=== PATIENT | male | born 1955 | race Caucasian/White ===

== ENCOUNTER 2023-03-27 13:58 | Emergency (ER) | payer MEDICARE, OTHER ==
[2023-03-27 15:44] LABS: #Eosinphils 0.1 10x3/uL (0.0-0.5); #Monocytes 0.7 10x3/uL (0.0-1.1); #Neutrophils 7.4 10x3/uL (1.5-8.4); %Basophils 0.4 % (0.0-2.0); %Eosinophils 0.8 % (0.0-6.0); %Lymphocytes 17.2 % (18.0-47.0); %Monocytes 7.1 % (0.0-10.0); %Neutrophils 74.1 % (40.0-75.0); Hemoglobin 12.1 g/dL (13.5-17.5); Mean Corpuscular HGB CONC 32.9 g/dL (32.0-36.0); Mean Corpuscular Hemoglobin 31.8 pg (27.0-33.0); Mean Corpuscular Volume 96.6 fl (81.2-95.1); Mean Platelet Volume 9.6 fl (7.4-10.4); Platelet Count 234 10x3/uL (150-450); Red Blood Cell (RBC) Count 3.81 10x6/uL (4.32-5.72); White Blood Cell (WBC) Count 9.9 10x3/uL (3.5-10.5)
[2023-03-27 15:55] LABS: ALT (SGPT) 46 U/L (8-55); AST (SGOT) 35 U/L (5-34); Albumin 4.1 g/dL (3.4-4.8); Alkaline Phosphatase 89 U/L (40-110); Anion Gap 17 mmol/L (10-20); BUN (Urea Nitrogen) 25 mg/dL (8.4-25.7); Bilirubin, Total 0.5 mg/dL (0.2-1.2); Calc. Creatinine Clearance 0 mL/min (70-130); Calcium 8.5 mg/dL (7.8-10.44); Carbon Dioxide 19 mmol/L (23-31); Chloride 103 mmol/L (98-107); Estimated GFR 48; Globulin 2.5 g/dL (2.4-3.5); Glucose 96 mg/dL (80-115); Protein, Total 6.6 g/dL (5.8-8.1); Sodium 134 mmol/L (136-145)
[2023-03-27 16:44] LABS: Bilirubin Neg (Negative); Blood, Urine Negative (Negative); Clarity Clear (Clear); Glucose, Urine (Dipstick) Normal (Negative); Ketone, Urine Negative (Negative); Leukocyte Negative (Negative); Nitrite Negative (Negative); Protein, Urine (Dipstick) Negative (Neg-Trace); Specific Gravity, Urine 1.015 (1.005-1.030); Urobilinogen Normal mg/dL (Less than 2)
[2023-03-27 16:54] LABS: Bacteria/HPF Rare-Few HPF (None Seen); CAUTI Indications for Culture Dysuria,urgency,freq; RBC/HPF None Seen HPF (0-3); Squamous Epithelial None Seen HPF (0-3); WBC/HPF 0-3 HPF (0-3)
[2023-03-27 16:55] LABS: Urine Culture Reflex No No
== END 2023-03-27 18:10 | disposition home or self-care (01) ==
LOC: CSHERS 13:58
DX: E86.0 Dehydration (principal); I10 Essential (primary) hypertension; Z79.899 Other long term (current) drug therapy
CPT/HCPCS: 36415; 80053; 81001; 83880; 84484; 85025; 93005; 96360

== ENCOUNTER 2023-04-22 13:26 | Outpatient (CLI) | payer MEDICARE, OTHER | END 2023-04-22 13:27 | disposition home or self-care (01) | LOC: CSHCT 13:26 | PROVIDERS: ATTEND Psychiatry & Neurology Neurology | DX: M48.062 Spinal stenosis, lumbar region with neurogenic claudication (principal); Z98.1 Arthrodesis status; Z98.890 Other specified postprocedural states; M47.816 Spondylosis without myelopathy or radiculopathy, lumbar region; M48.061 Spinal stenosis, lumbar region without neurogenic claudication | CPT/HCPCS: 72131 ==

== ENCOUNTER 2023-06-23 14:40 | Observation (INO) | payer MEDICARE, OTHER ==
[2023-06-23] MEDS ORDERED: Morphine 4 MG/ML VIAL ONE (15:06)
[2023-06-23] MEDS ORDERED: Ondansetron PF 4 MG/2 ML Vial ONE (15:06)
[2023-06-23 15:28] LABS: #Eosinphils 0.1 10x3/uL (0.0-0.5); #Monocytes 0.7 10x3/uL (0.0-1.1); #Neutrophils 8.6 10x3/uL (1.5-8.4); %Basophils 0.4 % (0.0-2.0); %Eosinophils 0.9 % (0.0-6.0); %Lymphocytes 12.9 % (18.0-47.0); %Monocytes 6.2 % (0.0-10.0); %Neutrophils 79.2 % (40.0-75.0); Hematocrit 40.4 % (38.8-50.0); Hemoglobin 13.3 g/dL (13.5-17.5); Mean Corpuscular HGB CONC 32.9 g/dL (32.0-36.0); Mean Corpuscular Hemoglobin 31.4 pg (27.0-33.0); Mean Corpuscular Volume 95.3 fl (81.2-95.1); Mean Platelet Volume 9.4 fl (7.4-10.4); Platelet Count 285 10x3/uL (150-450); RBC Distribution Width 13.2 % (11.5-14.5); Red Blood Cell (RBC) Count 4.24 10x6/uL (4.32-5.72); White Blood Cell (WBC) Count 10.9 10x3/uL (3.5-10.5)
[2023-06-23 15:33] LABS: Anion Gap 14 mmol/L (10-20); BUN (Urea Nitrogen) 14 mg/dL (8.4-25.7); Calc. Creatinine Clearance 0 mL/min (70-130); Carbon Dioxide 25 mmol/L (23-31); Chloride 104 mmol/L (98-107); Estimated GFR 60; Sodium 138 mmol/L (136-145)
[2023-06-23 15:34] LABS: ALT (SGPT) 29 U/L (8-55); AST (SGOT) 26 U/L (5-34); Albumin 4.4 g/dL (3.4-4.8); Alkaline Phosphatase 102 U/L (40-110); Bilirubin, Total 0.4 mg/dL (0.2-1.2); Calcium 9.9 mg/dL (7.8-10.44); Globulin 3.4 g/dL (2.4-3.5); Glucose 133 mg/dL (80-115); Lipase 19 U/L (8-78); Magnesium 2.1 mg/dL (1.6-2.6); Protein, Total 7.8 g/dL (5.8-8.1)
[2023-06-23 15:51] LABS: Bilirubin Neg (Negative); Blood, Urine Negative (Negative); Clarity Clear (Clear); Glucose, Urine (Dipstick) Normal (Negative); Ketone, Urine Negative (Negative); Leukocyte Negative (Negative); Nitrite Negative (Negative); Protein, Urine (Dipstick) 15 mg/dl (Neg-Trace); Specific Gravity, Urine 1.015 (1.005-1.030); Urobilinogen Normal mg/dL (Less than 2)
[2023-06-23 16:25] LABS: CAUTI Indications for Culture Pelvic or flank pain; RBC/HPF 0-3 HPF (0-3); Squamous Epithelial 0-3 HPF (0-3); WBC/HPF 0-3 HPF (0-3)
[2023-06-23 16:26] LABS: Bacteria/HPF Rare-Few HPF (None Seen); Mucous/LPF Rare LPF (<2+); Urine Culture Reflex No No
[2023-06-23] MEDS ORDERED: diphenhydrAMINE 25 MG CAP PO PRN (19:05)
[2023-06-23] MEDS ORDERED: Acetaminophen 325 MG TAB PO PRN (19:07)
[2023-06-23] MEDS ORDERED: Ondansetron PF 4 MG/2 ML Vial IVP PRN (19:07)
[2023-06-23] MEDS ORDERED: Ondansetron ODT 4 MG TAB PO PRN (19:07)
[2023-06-23] MEDS ORDERED: HYDROcodone/Acetaminophen 5/325 mg Tablet PO PRN (19:07)
[2023-06-23] MEDS ORDERED: Bisacodyl 10 MG SUPP PR PRN (19:07)
[2023-06-23] MEDS ORDERED: Lactated Ringer's 1,000 ML IV SCH (19:15)
[2023-06-23] MEDS ORDERED: Morphine 2 MG/ML VIAL SLOW IVP PRN (19:32)
[2023-06-23 19:55] VITALS: BMI 40.6
[2023-06-23] MEDS ORDERED: Donepezil HCl 5 MG TAB PO SCH (21:00)
[2023-06-23] MEDS ORDERED: Gabapentin 100 MG CAP PO SCH (21:00)
[2023-06-23] MEDS ORDERED: Pantoprazole 40 MG VIAL IVP SCH (21:15)
[2023-06-23] MEDS: Loratadine 10 MG TAB PO SCH (21:33)
[2023-06-23] MEDS: DULoxetine 20 MG CAP PO SCH (21:35)
[2023-06-23] MEDS ORDERED: Carvedilol 3.125 MG TAB PO SCH (22:15)
[2023-06-23] MEDS ORDERED: Lisinopril 20 MG TAB PO SCH (22:15)
[2023-06-24 03:50] LABS: #Eosinphils 0.1 10x3/uL (0.0-0.5); #Monocytes 0.9 10x3/uL (0.0-1.1); #Neutrophils 8.6 10x3/uL (1.5-8.4); %Basophils 0.2 % (0.0-2.0); %Eosinophils 0.7 % (0.0-6.0); %Monocytes 7.9 % (0.0-10.0); %Neutrophils 77.9 % (40.0-75.0); Hematocrit 36.4 % (38.8-50.0); Hemoglobin 12.1 g/dL (13.5-17.5); Mean Corpuscular HGB CONC 33.2 g/dL (32.0-36.0); Mean Corpuscular Hemoglobin 32.1 pg (27.0-33.0); Mean Corpuscular Volume 96.6 fl (81.2-95.1); Mean Platelet Volume 9.8 fl (7.4-10.4); Platelet Count 279 10x3/uL (150-450); RBC Distribution Width 13.3 % (11.5-14.5); Red Blood Cell (RBC) Count 3.77 10x6/uL (4.32-5.72); White Blood Cell (WBC) Count 11.1 10x3/uL (3.5-10.5)
[2023-06-24 04:19] LABS: Anion Gap 14 mmol/L (10-20); BUN (Urea Nitrogen) 12 mg/dL (8.4-25.7); Calc. Creatinine Clearance 108 mL/min (70-130); Calcium 8.8 mg/dL (7.8-10.44); Carbon Dioxide 23 mmol/L (23-31); Chloride 103 mmol/L (98-107); Estimated GFR 71; Glucose 124 mg/dL (80-115); Magnesium 2.1 mg/dL (1.6-2.6); Potassium 4.4 mmol/L (3.5-5.1); Sodium 136 mmol/L (136-145)
[2023-06-24] MEDS ORDERED: Carvedilol 3.125 MG TAB PO SCH ×2 (08:00)
[2023-06-24 08:22] VITALS: TEMP 97.6
[2023-06-24] MEDS: Loratadine 10 MG TAB PO SCH (08:29)
[2023-06-24] MEDS: DULoxetine 20 MG CAP PO SCH (08:31)
[2023-06-24] MEDS ORDERED: Gabapentin 300 MG CAP PO SCH ×2 (09:00→14:00)
[2023-06-24] MEDS ORDERED: Atorvastatin Calcium 20 MG TAB PO SCH (09:00)
[2023-06-24] MEDS ORDERED: Tamsulosin HCl 0.4 MG CAP PO SCH (09:00)
[2023-06-24] MEDS ORDERED: Lisinopril 20 MG TAB PO SCH ×2 (09:00→20:00)
[2023-06-24 14:51] VITALS: BP 116/59
== END 2023-06-24 10:10 | disposition home or self-care (01) ==
LOC: CSHERS 14:40 → INTOOBSV 17:30 → CSHTELE 17:30
PROVIDERS: ADMIT Internal Medicine; ATTEND Internal Medicine
DX: K56.600 Partial intestinal obstruction, unspecified as to cause (principal); G31.84 Mild cognitive impairment of uncertain or unknown etiology; K21.9 Gastro-esophageal reflux disease without esophagitis; I89.0 Lymphedema, not elsewhere classified; N40.0 Benign prostatic hyperplasia without lower urinary tract symptoms; E66.9 Obesity, unspecified; G62.9 Polyneuropathy, unspecified; E78.5 Hyperlipidemia, unspecified; J30.2 Other seasonal allergic rhinitis; M19.90 Unspecified osteoarthritis, unspecified site; D72.829 Elevated white blood cell count, unspecified; Z79.899 Other long term (current) drug therapy; Z98.890 Other specified postprocedural states; Z88.2 Allergy status to sulfonamides
CPT/HCPCS: 74177; 80048; 80053; 81001; 83690; 83735 ×2; 85025 ×2; 93005; 96361; 96372; 96374; 96375 ×2; 99285; G0378 ×2; 36415; C9113; J1650; J2270; J2405; J7120